=== PATIENT | female | born 1970 | race Caucasian/White ===

== ENCOUNTER 2025-01-25 22:10 | Inpatient (IN) ==
[2025-01-25] MEDS: ZOFRAN INJ 4 MG VIAL IVP ONE (22:33)
[2025-01-25] MEDS: NS 1,000 ML IV 1,000 ML IV ONE ×2 (22:34→23:25)
--- NOTE | 2025-01-25 22:40 | DR.FEVERAD ---
HPI Time seen Time Seen by Provider: 01/25/25 22:19 PCP Primary Care Physician: Miah Aragon Complaints/Symptoms Chief Complaint Doctor Comments: 54 yo F, hx of epilepsy, no other med hx, c/o n/v/d for past 2.5 days, ~5-8 episodes of vomiting per day, and ~10 episodes of diarrhea per day. Admits to fever/chills & dysuria. Admits to mild cough. Denies CP or dyspnea. Chief Complaint:: pt ambulatory in ed w/her states she has been running a fever,throwing up and having general malaise since thursday. pt was seen at her pcp today and tested positive for covid. COVID-19 Coronavirus risk:travel/contact w/high risk person: Yes Has patient experienced Coronavirus symptoms: Yes Coronavirus symptoms experienced: Fever, Coughing and Shortness of Breath Source History Provided: Patient Mode of Arrival Mode of Arrival: Ambulatory Timing Onset of Chief Complaint: 01/23/25 PMH PMH Past Medical History: Yes Past Medical History: Depression and Seizures Past Surgical History: Yes Past Surgical History Comment: breast Family History History of Family Medical Conditions: No Social History Type of Tobacco Use: Vape Travel Risk Coronavirus risk:travel/contact w/high risk person: Yes Has patient experienced Coronavirus symptoms: Yes Coronavirus symptoms experienced: Fever, Coughing and Shortness of Breath Infectious screening Have you traveled outside the country in the last 6 months?: No Isolation: Respiratory ROS Review of Systems Constitutional: Other (fever/chills, n/v/d, dysuria, cough) All Other Systems: Reviewed and Negative PE Vital Signs Vitals: Vital Signs Temperature 100.0 F Temperature 98.8 F Pulse Rate 86 Pulse Rate 89 Pulse Rate 91 Pulse Rate 97 Pulse Rate 102 Pulse Rate 96 Pulse Rate 103 Pulse Rate 103 Pulse Rate 106 Pulse Rate 106 Pulse Rate 120 Respiratory Rate 20 Respiratory Rate 20 Blood Pressure 86/51 Blood Pressure 93/51 Blood Pressure 104/71 Blood Pressure 104/71 Blood Pressure 104/71 Blood Pressure 113/73 Blood Pressure 113/73 Blood Pressure 98/59 O2 Sat by Pulse Oximetry 91 O2 Sat by Pulse Oximetry 94 O2 Sat by Pulse Oximetry 94 O2 Sat by Pulse Oximetry 94 O2 Sat by Pulse Oximetry 98 O2 Sat by Pulse Oximetry 99 O2 Sat by Pulse Oximetry 99 O2 Sat by Pulse Oximetry 99 O2 Sat by Pulse Oximetry 99 O2 Sat by Pulse Oximetry 97 O2 Sat by Pulse Oximetry 96 General Limitations: No Limitations General Appearance: Alert and In No Apparent Distress Head Head Exam: Normal Inspection Eyes Eye exam: Normal Appearance ENT ENT Exam: Normal Exam Neck Neck Exam: Normal Inspection Respiratory Respiratory Exam: Normal Lung Sounds Bilat Cardiovascular Cardiovascular Exam: Regular Rate and Normal Rhythm Abdominal Exam Abdominal Exam: Normal Inspection, Normal Bowel Sounds and Soft Extremities Extremities Exam: Normal Inspection Back Back Exam: Normal Inspection Neurologic Neurological Exam: Alert and Oriented X3 Psychiatric Psychiatric Exam: Normal Affect and Normal Mood Skin Skin Exam: Warm, Dry, Intact and Normal Color ROR Labs Reviewed Laboratory Results Reviewed?: Yes 01/25/25 22:30 01/25/25 22: Laboratory: WBC 20.2 X10^3/uL (3.6-10.0) H 01/25/25 22: RBC 4.79 X10^6/uL (3.5-5.4) 01/25/25 22: Hgb 14.5 g/dL (12.0-16.0) 01/25/25 22: Hct 43.0 % (36.0-47.0) 01/25/25 22: MCV 89.8 fL (80.0-100.0) 01/25/25 22: MCH 30.2 pg (27.0-34.0) 01/25/25 22: MCHC 33.6 g/dL (33.0-35.0) 01/25/25 22: RDW 13.3 % (11.6-16.5) 01/25/25: Plt Count 132 X10^3/uL (150.0-450.0) L 01/25/25 22: Plt Count Comment Decreased (ADEQUATE) A 01/25/25: MPV 9.1 fL (7.4-11.0) 01/25/25: Neut % (Auto) 77.4 % (42.0-75.0) H 01/25/25 22: Lymph % (Auto) 4.1 % (21.0-51.0) L 01/25/25: [place] % (Auto) 18.3 % (0.0-13.0) H 01/25/25 22:30 Eos % (Auto) 0.0 % (0.9-2.9) L 01/25/25 22:30 Baso % (Auto) 0.2 % (0.2-1.0) 01/25/25 22:30 Neut # (Auto) 15.6 x10^3/uL (2.2-4.8) H 01/25/25 22:30 Lymph # (Auto) 0.8 X10^3/uL (1.3-2.9) L 01/25/25 22:30 [place] # (Auto) 3.7 x10^3/uL (0.3-0.8) H 01/25/25 22:30 Eos # (Auto) 0.0 x10^3/uL (0.0-0.2) 01/25/25 22:30 Baso # (Auto) 0.0 X10^3/uL (0.0-0.1) 01/25/25 22:30 Absolute Nucleated RBC 0.0 /100WBC 01/25/25 22:30 Total Counted 100 01/25/25 22:30 Neutrophils % (Manual) 71 % (39-76) 01/25/25 22:30 Band Neutrophils % 5 % (0-10) 01/25/25 22:30 Lymphocytes % (Manual) 8 % (13-43) L 01/25/25 22:30 Monocytes % (Manual) 16 % (4-9) H 01/25/25 22:30 Plt Morphology Comment Normal (NORMAL) 01/25/25 22:30 RBC Morphology Abnormal (NORMAL) A 01/25/25 22:30 Anisocytosis 1+ A 01/25/25 22:30 Sodium 135 mmol/L (136-145) L 01/25/25 22:30 Corrected Sodium TNP 01/25/25 22:30 Potassium 3.9 mmol/L (3.5-5.1) 01/25/25 22:30 Chloride 98 mmol/L (98-107) 01/25/25 22:30 Carbon Dioxide 25.2 mmol/L (21-32) 01/25/25 22:30 BUN 25 mg/dL (7-18) H 01/25/25 22:30 Creatinine 1.55 mg/dL (0.55-1.02) H 01/25/25 22:30 Est GFR (MDRD) Af Amer 45 (>60) L 01/25/25 22:30 Est GFR (MDRD) Non-Af 37 (>60) L 01/25/25 22:30 Glucose 103 mg/dL (65-99) H 01/25/25 22:30 Lactic Acid 2.2 mmol/L (0.4-2.0) H 01/25/25 22:30 Calcium 10.0 mg/dL (8.5-10.1) 01/25/25 22: Corrected Calcium 10.8 mg/dL (8.5-10.1) H 01/25/25 22:30 Total Bilirubin 0.80 mg/dL (0.2-1.0) 01/25/25 22:30 AST 72 Units/L (15-37) H 01/25/25 22:30 ALT 56 Units/L (12-78) 01/25/25 22:30 Alkaline Phosphatase 61 Units/L (46-116) 01/25/25 22: Total Protein 7.9 g/dL (6.4-8.2) 01/25/25 22: Albumin 3.0 g/dL (3.4-5.0) L 01/25/25 22: Globulin 4.9 g/dL (2.5-4.5) H 01/25/25 22:30 Albumin/Globulin Ratio 0.6 Ratio (1.1-2.1) L 01/25/25 22:30 Lipase 19 Units/L (16-77) 01/25/25 22:30 Specimen Type Clean catch urine 01/25/25: Urine Color Dark yellow (YELLOW) 01/25/25: Urine Appearance Cloudy (CLEAR) 01/25/25: Urine pH 6.0 (5.0 - 8.0) 01/25/25: Ur Specific [place] 1.015 (1.000-1.030) 01/25/25: Urine Protein 3+ (NEGATIVE) 01/25/25: Urine Glucose (UA) Negative (NEGATIVE) 01/25/25: Urine Ketones Negative (NEGATIVE) 01/25/25: Urine Blood 5+ (NEGATIVE) 01/25/25 Urine Nitrite Negative (NEGATIVE) 08/20/25 23:33 Urine Bilirubin Negative (NEGATIVE) 01/25/25 23:33 Urine Urobilinogen 2+ (NORMAL) 01/25/25 23:33 Ur Leukocyte Esterase 3+ (NEGATIVE) 01/25/25 23:33 Urine RBC 10-20 /HPF (0-3) A 01/25/25 23:33 Urine WBC Tntc /HPF (0-5) A 01/25/25 23:33 Ur Squamous Epith Cells Rare /HPF (NEGATIVE) 01/25/25 23:33 Ur Transition Epith Cell Rare /HPF (NEGATIVE) 01/25/25 23:33 Amorphous Sediment 1+ /HPF (NEGATIVE) 01/25/25 23:33 Urine Bacteria Trace /HPF (NEGATIVE) 01/25/25 23:33 Urine Mucus Few /HPF (NEGATIVE) 01/25/25 23:33 Ur Culture Indicated? Yes/culture set up 01/25/25 23:33 Opioid Opioid Risk Tool Age (Messi box if 16-45): No History of Preadolescent Sexual Abuse: No Total: 0 Total Score Risk Category: Low Risk Copyright: Marco SOL predicting aberrant behaviors Discharge Plan Diagnosis Discharge Problem: Sepsis, UTI (urinary tract infection), COVID-19 Discharge Plan Patient Disposition: ADMITTED INPATIENT Condition: Stable Health Concerns: Post Hospitalization: new medications and changes needed to prevent readmission or further decline. Pt educated and given instructions on all concerns. Plan of Treatment: Continue with present treatment and follow up plan. Pt is to keep follow up appointment as instructed and take medications as ordered. Orders to Discharge Patient Discharge Orders: Transfer (Routine); Ordered 01/26/25 Ordered By: Oj Lomeli Follow ups/Referrals Follow ups/Referrals: MIAH ARAGON [Primary Care Provider, MEDICAL] - 3 days Instructions Stand Alone Forms: Find Help Web Site, Post Hospital Follow Up Care Print Language: CANADIAN ADDITIONAL NOTES Additional Notes Additional Notes: accepted for admission by Dr Ochoa.
[2025-01-25 22:53] LABS: COR CA(FOR HYPOALB) 10.8 mg/dL (8.5-10.1); CREATININE 1.55 mg/dL (0.55-1.02); eGFR NON BLACK RACES 37 (>60)
[2025-01-25 23:02] LABS: MEAN PLATELET VOLUME 9.1 fL (7.4-11.0)
[2025-01-25 23:05] LABS: RED CELL DISTRIBUTION WIDTH 13.3 % (11.6-16.5)
[2025-01-25] MEDS: TYLENOL 500 MG TAB EXTRA STRENGTH PO ONE (23:19)
[2025-01-25 23:48] LABS: BLOOD/HEMOGLOBIN,URINE 5+ (NEGATIVE); LEUKOCYTE ESTERASE ,URINE 3+ (NEGATIVE); NITRITES,URINE NEGATIVE (NEGATIVE)
[2025-01-25 23:53] LABS: BAND NEUTROPHILS % 5 % (0-10); PLATELET MORPHOLOGY COMMENT NORMAL (NORMAL)
[2025-01-25 23:54] LABS: APPEARANCE,URINE CLOUDY (CLEAR)
[2025-01-25 23:57] LABS: SQUAMOUS EPITHELIAL CELL,UR RARE /HPF (NEGATIVE)
[2025-01-26] MEDS: ROCEPHIN VIAL 1 GRAM 1 G in NS 100 ML IV 100 ML IV ONE (00:17)
[2025-01-26] MEDS: NS 1,000 ML IV 1,000 ML IV ONE (01:14)
[2025-01-26] MEDS: LEVOPHED 8 MG/250 ML IV *PREMIX 8 MG/250 ML PLAST..BAG IV PRN (01:42)
[2025-01-26] MEDS: PROAMATINE PO SCH (01:59)
[2025-01-26] MEDS ORDERED: MORPHINE SULFATE INJ 2 MG INJ IVP PRN (02:44)
[2025-01-26] MEDS ORDERED: NS 1,000 ML IV 1,000 ML IV SCH (02:44)
[2025-01-26] MEDS ORDERED: CONSULT PHARMACY - POTASSIUM & MAGNESIUM XX SCH (02:44)
[2025-01-26] MEDS: NS 1,000 ML IV 1,000 ML IV SCH (03:10)
[2025-01-26 05:13] LABS: MEAN PLATELET VOLUME 8.9 fL (7.4-11.0); RED CELL DISTRIBUTION WIDTH 13.1 % (11.6-16.5)
[2025-01-26 05:23] VITALS: BMI 22.0
[2025-01-26 05:47] LABS: COR CA(FOR HYPOALB) 9.8 mg/dL (8.5-10.1); COR NA(FOR HYPERGLY) 140.0 mmol/L (136-145); CREATININE 1.41 mg/dL (0.55-1.02); eGFR NON BLACK RACES 41.0 (>60)
--- NOTE | 2025-01-26 06:09 | RAD ---
EXAM: Portable chest HISTORY: Sepsis, COVID COMPARISON: None FINDINGS: Heart size is normal. Sarai are normal. Lungs are mildly hyperinflated but free of acute alveolar infiltrates. No pleural effusions or pneumothoraces identified. Bony thorax is unremarkable. IMPRESSION: Lungs are mildly hyperinflated but free of acute infiltrates THIS IS AN ELECTRONICALLY VERIFIED FINAL REPORT 01/26/2025 6:06 AM - Electronically signed by Hal Oliva MD
[2025-01-26] MEDS: TYLENOL 325 MG TAB PO PRN (08:03)
[2025-01-26] MEDS: K-DUR TAB 20 MEQ PO SCH (08:04)
[2025-01-26] MEDS: ZOFRAN INJ 4 MG VIAL ONE (08:07)
[2025-01-26] MEDS: NS 1,000 ML IV 1,000 ML ONE (08:07)
[2025-01-26] MEDS: TYLENOL 500 MG TAB EXTRA STRENGTH PO ONE (08:08)
[2025-01-26] MEDS: PULMICORT NEB TX 0.5 MG NEB SCH (08:43)
[2025-01-26] MEDS: DUONEB 0.5 MG/3 MG (3 mL) NEB SCH (08:43)
--- NOTE | 2025-01-26 10:45 | DR.H&P ---
H&P History & Physical for Day of: H&P Date: 01/26/25 Chief Complaint Chief Complaint: weakness, Dysuria Nausea, vomiting, diarrhea, Fever, chills History of Present Illness History of Present Illness: Patient is a 54-year-old female presenting with nausea, vomiting, diarrhea, generalized weakness, dysuria. She also reports having fevers and chills for the past few days. She went to her primary care doctor and was tested positive for COVID 19. Her symptoms progressively worsened and she came to the ER. In the ER she was noted to be hypotensive and weak. Labs/imaging: WBC 20.2,17.5, hemoglobin 12.3, platelets 122, sodium 140, potassium 3.5, creatinine 1.551.41, glucose 132, lactic acid 2.21.0, AST 207, ALT of 107, alk phos 59, chest x-ray no acute cardiopulmonary findings, urine/blood cultures pending. UA consistent with infection, AIT pending. Patient was admitted for sepsis and COVID-19 infection. She was started on Levophed drip. This morning she continues to be on the drip but her blood pressure has significantly responded. Will wean down as tolerated. Continue on IV fluids normal saline at 125 mL/h. She received Rocephin in the ER. Will change antibiotics to vancomycin and Zosyn. Order scheduled bronchodilators. Due to results we will also get a CT abdomen pelvis for further evaluation. Restart home medications. Otherwise continue with current treatment plan. Continue closely monitor and follow-up labs/imaging. Time spent for clinical assessment, reviewing labs/imaging, physical exam, decision making and documentation greater than 45 mins. Past Medical History Past Medical History: Depression and Seizures Past Surgical History Surgical History: Mastectomy Family History Family Medical History: Diabetes Mellitus and Coronary Artery Disease Social History Type of Tobacco Use: Vape Alcohol Use: Occasionally Drug Use: None Allergies Allergies Allergy/AdvReac Type Severity Reaction Status Date / Time codeine AdvReac Verified 01/25/25 22:23 Labs 01/26/25 04:08 01/26/25 04:08 Labs: Laboratory WBC 17.5 X10^3/uL (3.6-10.0) H 01/26/25 04:08 RBC 4.14 X10^6/uL (3.5-5.4) 01/26/25 04:08 Hgb 12.3 g/dL (12.0-16.0) D 01/26/25 04:08 Hct 37.5 % (36.0-47.0) 01/26/25 04:08 MCV 90.6 fL (80.0-100.0) 01/26/25 04:08 MCH 29.7 pg (27.0-34.0) 01/26/25 04:08 MCHC 32.8 g/dL (33.0-35.0) L 01/26/25 04:08 RDW 13.1 % (11.6-16.5) 01/26/25 04:08 Plt Count 122 X10^3/uL (150.0-450.0) L 01/26/25 04:08 Plt Count Comment Decreased (ADEQUATE) A 01/25/25 22:30 MPV 8.9 fL (7.4-11.0) 01/26/25 04:08 Neut % (Auto) 82.4 % (42.0-75.0) H 01/26/25 04:08 Lymph % (Auto) 6.1 % (21.0-51.0) L 01/26/25 04:08 [place] % (Auto) 11.2 % (0.0-13.0) 01/26/25 04:08 Eos % (Auto) 0.0 % (0.9-2.9) L 01/26/25 04:08 Baso % (Auto) 0.3 % (0.2-1.0) 01/26/25 04:08 Neut # (Auto) 14.5 x10^3/uL (2.2-4.8) H 01/26/25 04:08 Lymph # (Auto) 1.1 X10^3/uL (1.3-2.9) L 01/26/25 04:08 [place] # (Auto) 2.0 x10^3/uL (0.3-0.8) H 01/26/25 04:08 Eos # (Auto) 0.0 x10^3/uL (0.0-0.2) 01/26/25 04:08 Baso # (Auto) 0.1 X10^3/uL (0.0-0.1) 01/26/25 04:08 Absolute Nucleated RBC 0.1 /100WBC 01/26/25 04:08 Total Counted 100 01/25/25 22:30 Neutrophils % (Manual) 71 % (39-76) 01/25/25 22:30 Band Neutrophils % 5 % (0-10) 01/25/25 22:30 Lymphocytes % (Manual) 8 % (13-43) L 01/25/25 22:30 Monocytes % (Manual) 16 % (4-9) H 01/25/25 22:30 Plt Morphology Comment Normal (NORMAL) 01/25/25 22:30 RBC Morphology Abnormal (NORMAL) A 01/25/25 22:30 Anisocytosis 1+ A 01/25/25 22:30 Sodium 139 mmol/L (136-145) 01/26/25 04:08 Corrected Sodium 140 mmol/L (136-145) 01/26/25 04:08 Potassium 3.5 mmol/L (3.5-5.1) 01/26/25 04:08 Chloride 106 mmol/L (98-107) 01/26/25 04:08 Carbon Dioxide 23.0 mmol/L (21-32) 01/26/25 04:08 BUN 23 mg/dL (7-18) H 01/26/25 04:08 Creatinine 1.41 mg/dL (0.55-1.02) H 01/26/25 04:08 Est GFR (MDRD) Af Amer 50 (>60) L 01/26/25 04:08 Est GFR (MDRD) Non-Af 41 (>60) L 01/26/25 04:08 Glucose 132 mg/dL (65-99) H 01/26/25 04:08 Lactic Acid 1.0 mmol/L (0.4-2.0) 01/26/25 00:35 Calcium 8.4 mg/dL (8.5-10.1) L 01/26/25 04:08 Corrected Calcium 9.8 mg/dL (8.5-10.1) 01/26/25 04:08 Total Bilirubin 1.10 mg/dL (0.2-1.0) H 01/26/25 04:08 AST 207 Units/L (15-37) H 01/26/25 04:08 ALT 107 Units/L (12-78) H 01/26/25 04:08 Alkaline Phosphatase 59 Units/L (46-116) 01/26/25 04:08 Total Protein 6.2 g/dL (6.4-8.2) L 01/26/25 04:08 Albumin 2.2 g/dL (3.4-5.0) L 01/26/25 04:08 Globulin 4.0 g/dL (2.5-4.5) 01/26/25 04:08 Albumin/Globulin Ratio 0.6 Ratio (1.1-2.1) L 01/26/25 04:08 Lipase 19 Units/L (16-77) 01/25/25 22:30 Specimen Type Clean catch urine 01/25/25 23:33 Urine Color Dark yellow (YELLOW) 01/25/25 23: Urine Appearance Cloudy (CLEAR) 01/25/25 23: Urine pH 6.0 (5.0 - 8.0) 01/25/25 23:33 Ur Specific [place] 1.015 (1.000-1.030) 01/25/25 23:33 Urine Protein 3+ (NEGATIVE) 01/25/25 23: Urine Glucose (UA) Negative (NEGATIVE) 01/25/25 23: Urine Ketones Negative (NEGATIVE) 01/25/25 23: Urine Blood 5+ (NEGATIVE) 01/25/25: Urine Nitrite Negative (NEGATIVE) 01/25/25 23: Urine Bilirubin Negative (NEGATIVE) 01/25/25 23: Urine Urobilinogen 2+ (NORMAL) 01/25/25 23:33 Ur Leukocyte Esterase 3+ (NEGATIVE) 01/25/25 23: Urine RBC 10-20 /HPF (0-3) A 01/25/25 23:33 Urine WBC Tntc /HPF (0-5) A 01/25/25 23:33 Ur Squamous Epith Cells Rare /HPF (NEGATIVE) 01/25/25 23:33 Ur Transition Epith Cell Rare /HPF (NEGATIVE) 01/25/25 23: Amorphous Sediment 1+ /HPF (NEGATIVE) 01/25/25 23:33 Urine Bacteria Trace /HPF (NEGATIVE) 01/25/25 23:33 Urine Mucus Few /HPF (NEGATIVE) 01/25/25 23:33 Ur Culture Indicated? Yes/culture set up 01/25/25 23:33 Review of Systems Constitutional: Fever, Chills and Weakness Eyes: No Symptoms Reported ENT: No Symptoms Reported Respiratory: No Symptoms Reported Cardiovascular: No Symptoms Reported Gastrointestinal: Nausea and Vomiting Genitourinary: Dysuria Musculoskeletal: No Symptoms Reported Skin: No Symptoms Reported Neurological: No Symptoms Reported Physical Exam Vital Signs: Vital Signs Temperature 98.7 F Temperature 97.4 F Pulse Rate [Brachial] 75 Pulse Rate [Brachial] 85 Pulse Rate [Brachial] 71 Pulse Rate [Brachial] 69 Pulse Rate 80 Pulse Rate 79 Respiratory Rate 20 Respiratory Rate 20 Respiratory Rate 20 Respiratory Rate 20 Respiratory Rate 22 Respiratory Rate 21 Blood Pressure [Right Arm] 104/53 Blood Pressure [Right Arm] 115/58 Blood Pressure [Right Arm] 130/80 Blood Pressure [Right Arm] 99/54 O2 Sat by Pulse Oximetry 100 O2 Sat by Pulse Oximetry 100 O2 Sat by Pulse Oximetry 99 O2 Sat by Pulse Oximetry 99 O2 Sat by Pulse Oximetry 99 Oriented: Normal Eyes: Normal Ear: Normal Nose: Normal Throat: Normal Respiratory: Clear Throughout Cardiovascular: Normal : Normal Auscultation: Bowel Sounds: Normal Palpation: Normal Tenderness: Normal Skin: Decreased [place] Musculoskeletal: Normal Psychiatric: Normal Mood Description: Calm and Appropriate Affect: Normal Speech Pattern: Clear and Appropriate Assessment/Plan (1) Sepsis: Qualifiers: Sepsis type: sepsis due to unspecified organism Sepsis acute organ dysfunction status: unspecified Qualified Code(s): A41.9 - Sepsis, unspecified organism Status: Acute Plan: Continue ICU monitoring Continue IV fluids and wean Levophed drip. Continue IV antibiotics vancomycin and Zosyn. (2) UTI (urinary tract infection): Qualifiers: Urinary tract infection type: acute cystitis Hematuria presence: with hematuria Qualified Code(s): N30.01 - Acute cystitis with hematuria Status: Acute Plan: Order CT abdomen and pelvis. Follow-up cultures. (3) COVID-19: Status: Acute (4) Elevated liver enzymes: Status: Acute Plan: Will order CT abdomen pelvis for further evaluation. Review H&P Reviewed: Yes Patient was examined?: Yes
[2025-01-26] MEDS: NS 250 ML IV 250 ML IV ONE (11:01)
[2025-01-26] MEDS: VANCOMYCIN IV *PREMIX 1.25 G/250 ML BAG 1.25 G/250 ML PIGGYBACK IV SCH (11:01)
[2025-01-26] MEDS: ZOFRAN TAB 4 MG PO PRN (12:00)
[2025-01-26] MEDS: ZOSYN VIAL 3.375 GRAMS 3.375 G in NS 100 ML IV 100 ML IV SCH (12:10)
--- NOTE | 2025-01-26 13:41 | CT ---
EXAM: ABDOMEN/PELVIS W/O CON HISTORY: ABDOMINAL PAIN ELEVATED LIVER ENZYMES; COMPARISON: CT abdomen and pelvis 10/12/2024 TECHNIQUE: Multiple CT axial images of the abdomen and pelvis were obtained without IV contrast. Coronal and sagittal images were reconstructed. Dose reduction techniques included Automated Exposure Control (AEC) and adjustment of mA and kV. FINDINGS: Small nodular areas right lower lobe are unchanged. No acute pneumonia in the lung bases or pleural effusion. Heart size normal. Right breast prosthesis is present. The liver is normal in size and configuration. The gallbladder has no edema around it. No calcified gallstones. The spleen is normal in size and shape. The adrenal glands are normal. The pancreas is normal. Small stone lower pole right kidney measures 3 mm. No abnormal calcification in the left kidney, the ureters, or the urinary bladder. The kidneys have normal size and shape. There is no hydronephrosis or significant perirenal edema. The bladder has normal distention. It has no wall thickening or perivesical edema. The bowel is not dilated. There is no wall thickening in the bowel or edema around the bowel. The appendix is normal in size with no inflammation around it. No evidence of appendicitis. There is no significant bone abnormality. IMPRESSION: 1. Nonobstructing right renal calculus 2. Stable right lower lobe lung nodules THIS IS AN ELECTRONICALLY VERIFIED FINAL REPORT 01/26/2025 1:38 PM - Electronically signed by Audie Simental MD
[2025-01-26] MEDS: ULTRAM PO PRN (14:16)
[2025-01-26] MEDS ORDERED: ROCEPHIN VIAL 1 GRAM 1 G in NS 100 ML IV 100 ML IV SCH (20:00)
[2025-01-26] MEDS: PROTONIX TAB 40 MG PO SCH (22:39)
[2025-01-26] MEDS: REQUIP PO SCH (22:39)
[2025-01-26] MEDS: DEPAKOTE D.R. TAB PO SCH (22:39)
[2025-01-26] MEDS: ZOCOR TAB 40 MG PO SCH (22:40)
[2025-01-26] MEDS: INDOCIN CAP 25 MG PO SCH (22:51)
[2025-01-27] MEDS: RESTORIL CAP 15 MG PO PRN (00:50)
[2025-01-27 05:29] LABS: MEAN PLATELET VOLUME 8.6 fL (7.4-11.0); RED CELL DISTRIBUTION WIDTH 13.4 % (11.6-16.5)
[2025-01-27 05:49] LABS: COR CA(FOR HYPOALB) 9.9 mg/dL (8.5-10.1); COR NA(FOR HYPERGLY) 139 mmol/L (136-145); CREATININE 1.12 mg/dL (0.55-1.02); eGFR NON BLACK RACES 54 (>60)
[2025-01-27] MEDS: DEPAKOTE D.R. TAB PO ONE (06:56)
[2025-01-27] MEDS ORDERED: CONSULT PHARMACY - POTASSIUM & MAGNESIUM XX SCH (07:00)
[2025-01-27] MEDS: MAG-OX TAB PO SCH (08:26)
[2025-01-27] MEDS: K-DUR TAB 20 MEQ PO SCH (08:26)
[2025-01-27] MEDS: ZOLOFT PO SCH (08:26)
[2025-01-27] MEDS: TRICOR TAB 48 MG PO SCH (08:26)
[2025-01-27] MEDS: COLACE CAP 100 MG PO PRN (10:25)
[2025-01-27] MEDS: ZOFRAN INJ 4 MG VIAL IVP PRN (15:27)
--- NOTE | 2025-01-27 17:10 | PCM.PROG ---
Progress Note Progress Note for Day of Date of Exam: 01/27/25 Subjective Subjective: Patient is a 54-year-old female admitted for sepsis and COVID-19 infection. Patient reports she tested positive for COVID-19 at her primary care office. This morning she is resting comfortably in bed. No acute events overnight. She was able to be weaned off the Levophed drip. Her blood pressure has remained stable. Labs/imaging: WBC 8.8, hemoglobin 9.4, platelets 88, sodium 139, potassium 3.2, creatinine 1.12, glucose 114, AST 561, ALT 352, ALK P 80, CT abdomen and pelvis was obtained that revealed Non-obstructing right renal calculus. Stable right lower lobe lung nodules. Urine culture positive for E coli, Blood cultures pending. AIT pending. Continue on IV fluids normal saline at 125 mL/h. She is currently on antibiotics IV Vancomycin and Zosyn. Will de- escalate and discontinue Vancomycin. Continue scheduled bronchodilators. Order hepatitis panel, discontinue Tricor and Tylenol. Monitor liver enzymes. Home medications have been resumed. Otherwise continue with current treatment plan. Continue closely monitor and follow-up labs/imaging. Time spent for clinical assessment, reviewing labs/imaging, physical exam, decision making and documentation greater than 45 mins. Past Medical Family Social History Allergies: Allergies codeine Adverse Reaction (Verified 01/25/25 22:23) Review of Systems ROS changes noted: see HPI Vital Signs and I&O's Vital Signs: Vital Signs Temperature 97.7 F Temperature 97.6 F Pulse Rate [Brachial] 93 Pulse Rate [Brachial] 82 Pulse Rate [Brachial] 79 Pulse Rate [Brachial] 79 Pulse Rate [Brachial] 79 Pulse Rate [Brachial] 95 Pulse Rate 76 Respiratory Rate 20 Respiratory Rate 25 Respiratory Rate 19 Respiratory Rate 21 Respiratory Rate 18 Respiratory Rate 16 Blood Pressure [Right Arm] 121/65 Blood Pressure [Right Arm] 115/55 Blood Pressure [Right Arm] 100/55 Blood Pressure [Right Arm] 97/55 Blood Pressure [Right Arm] 111/53 Blood Pressure [Right Arm] 100/54 O2 Sat by Pulse Oximetry 100 O2 Sat by Pulse Oximetry 100 O2 Sat by Pulse Oximetry 96 O2 Sat by Pulse Oximetry 96 O2 Sat by Pulse Oximetry 97 O2 Sat by Pulse Oximetry 99 O2 Sat by Pulse Oximetry 100 Intake and Output: Intake & Output 08/01/25/25 01/26/25 01/27/25 23:59 23:59 23:59 23:59 Intake Total 4447.0 / 4447.0 330 / 3308 Output Total 0 / 0 Balance 4447.0 / 4447.0 330 / 3308 Physical Exam Oriented: Normal Eyes: Normal Ear: Normal Nose: Normal Throat: Normal Respiratory: Normal Cardiovascular: Normal : Normal Auscultation: Bowel Sounds: Normal Tenderness: Normal Skin: Decreased Turgur Musculoskeletal: Normal Psychiatric: Normal Mood Description: Calm and Appropriate Affect: Normal Speech Pattern: Clear and Appropriate Laboratory and Diagnostics 01/27/25 04:38 01/27/25 04:38 Labs: 01/25/25 22:30 Blood Blood Culture - Preliminary 01/25/25 22:42 Blood Blood Culture - Preliminary 01/25/25 23:33 Urine,Clean Catch Urine Culture - Final Escherichia Coli Laboratory WBC 8.8 X10^3/uL (3.6-10.0) D 01/27/25 04:38 RBC 3.06 X10^6/uL (3.5-5.4) L 01/27/25 04:38 Hgb 9.4 g/dL (12.0-16.0) L D 01/27/25 04:38 Hct 27.2 % (36.0-47.0) L 01/27/25 04:38 MCV 88.7 fL (80.0-100.0) 01/27/25 04:38 MCH 30.7 pg (27.0-34.0) 01/27/25 04:38 MCHC 34.6 g/dL (33.0-35.0) 01/27/25 04:38 RDW 13.4 % (11.6-16.5) 01/27/25 04:38 Plt Count 88 X10^3/uL (150.0-450.0) L 01/27/25 04:38 Plt Count Comment Decreased (ADEQUATE) A 01/25/25 22:30 MPV 8.6 fL (7.4-11.0) 01/27/25 04:38 Neut % (Auto) 72.8 % (42.0-75.0) 01/27/25 04:38 Lymph % (Auto) 12.0 % (21.0-51.0) L 01/27/25 04:38 Lake % (Auto) 13.9 % (0.0-13.0) H 01/27/25 04:38 Eos % (Auto) 0.9 % (0.9-2.9) 01/27/25 04:38 Baso % (Auto) 0.4 % (0.2-1.0) 01/27/25 04:38 Neut # (Auto) 6.4 x10^3/uL (2.2-4.8) H 01/27/25 04:38 Lymph # (Auto) 1.1 X10^3/uL (1.3-2.9) L 01/27/25 04:38 Lake # (Auto) 1.2 x10^3/uL (0.3-0.8) H 01/27/25 04:38 Eos # (Auto) 0.1 x10^3/uL (0.0-0.2) 01/27/25 04:38 Baso # (Auto) 0.0 X10^3/uL (0.0-0.1) 01/27/25 04:38 Absolute Nucleated RBC 0.1 /100WBC 01/27/25 04:38 Total Counted 100 01/25/25 22:30 Neutrophils % (Manual) 71 % (39-76) 01/25/25 22:30 Band Neutrophils % 5 % (0-10) 01/25/25 22:30 Lymphocytes % (Manual) 8 % (13-43) L 01/25/25 22:30 Monocytes % (Manual) 16 % (4-9) H 01/25/25 22:30 Plt Morphology Comment Normal (NORMAL) 01/25/25 22:30 RBC Morphology Abnormal (NORMAL) A 01/25/25 22:30 Anisocytosis 1+ A 01/25/25 22:30 Sodium 139 mmol/L (136-145) 01/27/25 04:38 Corrected Sodium 139 mmol/L (136-145) 01/27/25 04:38 Potassium 3.2 mmol/L (3.5-5.1) L 01/27/25 04:38 Chloride 108 mmol/L (98-107) H 01/27/25 04:38 Carbon Dioxide 20.4 mmol/L (21-32) L 01/27/25 04:38 BUN 7 mg/dL (7-18) 01/27/25 04:38 Creatinine 1.12 mg/dL (0.55-1.02) H 01/27/25 04:38 Est GFR (MDRD) Af Amer > 60 (>60) 01/27/25 04:38 Est GFR (MDRD) Non-Af 54 (>60) L 01/27/25 04:38 Glucose 114 mg/dL (65-99) H 01/27/25 04:38 Lactic Acid 1.0 mmol/L (0.4-2.0) 01/26/25 00:35 Calcium 8.0 mg/dL (8.5-10.1) L 01/27/25 04:38 Corrected Calcium 9.9 mg/dL (8.5-10.1) 01/27/25 04:38 Magnesium 1.6 mg/dL (2.0-2.9) L 01/27/25 04:38 Total Bilirubin 0.80 mg/dL (0.2-1.0) 01/27/25 04:38 AST 561 Units/L (15-37) H 01/27/25 04:38 ALT 352 Units/L (12-78) H 01/27/25 04:38 Alkaline Phosphatase 80 Units/L (46-116) 01/27/25 04:38 Total Protein 4.7 g/dL (6.4-8.2) L 01/27/25 04:38 Albumin 1.6 g/dL (3.4-5.0) L 01/27/25 04:38 Globulin 3.1 g/dL (2.5-4.5) 01/27/25 04:38 Albumin/Globulin Ratio 0.5 Ratio (1.1-2.1) L 01/27/25 04:38 Lipase 19 Units/L (16-77) 01/25/25 22:30 Specimen Type Clean catch urine 01/25/25 23:33 Urine Color Dark yellow (YELLOW) 01/25/25 23:33 Urine Appearance Cloudy (CLEAR) 01/25/25 23:33 Urine pH 6.0 (5.0 - 8.0) 01/25/25 23:33 Ur Specific Twilight 1.015 (1.000-1.030) 01/25/25 23:33 Urine Protein 3+ (NEGATIVE) 01/25/25 23:33 Urine Glucose (UA) Negative (NEGATIVE) 01/25/25 23:33 Urine Ketones Negative (NEGATIVE) 01/25/25 23:33 Urine Blood 5+ (NEGATIVE) 01/25/25 23:33 Urine Nitrite Negative (NEGATIVE) 01/25/25 23:33 Urine Bilirubin Negative (NEGATIVE) 01/25/25 23:33 Urine Urobilinogen 2+ (NORMAL) 01/25/25 23:33 Ur Leukocyte Esterase 3+ (NEGATIVE) 01/25/25 23:33 Urine RBC 10-20 /HPF (0-3) A 01/25/25 23:33 Urine WBC Tntc /HPF (0-5) A 01/25/25 23:33 Ur Squamous Epith Cells Rare /HPF (NEGATIVE) 01/25/25 23:33 Ur Transition Epith Cell Rare /HPF (NEGATIVE) 01/25/25 23:33 Amorphous Sediment 1+ /HPF (NEGATIVE) 01/25/25 23:33 Urine Bacteria Trace /HPF (NEGATIVE) 01/25/25 23:33 Urine Mucus Few /HPF (NEGATIVE) 01/25/25 23:33 Ur Culture Indicated? Yes/culture set up 01/25/25 23:33 Plan (1) Sepsis: Status: Acute Qualifiers: Sepsis acute organ dysfunction status: unspecified Sepsis type: sepsis due to unspecified organism Qualified Code(s): A41.9 - Sepsis, unspecified organism Plan: Continue ICU monitoring Continue IV fluids. Off Levophed drip. Continue IV antibiotics Zosyn. (2) UTI (urinary tract infection): Status: Acute Qualifiers: Hematuria presence: with hematuria Urinary tract infection type: acute cystitis Qualified Code(s): N30.01 - Acute cystitis with hematuria Plan: Follow-up cultures. (3) COVID-19: Status: Acute (4) Elevated liver enzymes: Status: Acute Plan: order hepatitis panel, hold medications
[2025-01-27] MEDS: NORCO 5/325 MG TAB PO PRN (20:55)
[2025-01-27] MEDS: DUONEB 0.5 MG/3 MG (3 mL) NEB SCH (21:21)
[2025-01-27] MEDS: VISTARIL PO PRN (22:12)
[2025-01-28 05:39] LABS: MEAN PLATELET VOLUME 9.0 fL (7.4-11.0); RED CELL DISTRIBUTION WIDTH 13.4 % (11.6-16.5)
[2025-01-28 05:59] LABS: COR CA(FOR HYPOALB) 10.0 mg/dL (8.5-10.1); CREATININE 0.76 mg/dL (0.55-1.02); eGFR NON BLACK RACES > 60 (>60)
[2025-01-28] MEDS ORDERED: CONSULT PHARMACY - POTASSIUM & MAGNESIUM XX SCH (07:00)
[2025-01-28] MEDS: DEPAKOTE D.R. TAB PO ONE (07:21)
[2025-01-28] MEDS: ZOSYN VIAL 3.375 GRAMS IV ONE (07:22)
--- NOTE | 2025-01-28 12:26 | US ---
EXAM: GALL BLADDER HISTORY: Elevated LFTs, Nausea Vomiting, Abdominal Pain; COMPARISON: None. TECHNIQUE: Multiple watkins scale and color flow Doppler images of the right upper quadrant were obtained. FINDINGS: The liver is normal in echotexture and size . No focal intraparenchymal mass or intrahepatic biliary ductal dilatation can be observed. The gallbladder fails to demonstrate evidence for cholelithiasis or layering sludge . The common bile duct is unremarkable measuring 3 mm in width. No pericholecystic fluid or gallbladder wall thickening can be observed . The right kidney appears normal in size without focal parenchymal mass or nephrolithiasis. The right kidney measurers 11.3 cm in length. No hydronephrosis or perirenal fluid can be observed. The pancreas is obscured by overlying bowel gas. IMPRESSION: Unremarkable examination of the right upper quadrant. THIS IS AN ELECTRONICALLY VERIFIED FINAL REPORT 01/28/2025 12:22 PM - Electronically signed by Jaspal Barba MD
[2025-01-28] MEDS: K-DUR TAB 20 MEQ PO SCH (14:11)
[2025-01-28] MEDS: MAG-OX TAB PO SCH (14:11)
[2025-01-28] MEDS: NS + KCL 40 MEQ/L 1,000 ML IV SCH (15:44)
[2025-01-28] MEDS: MAGNESIUM SULFATE 1 GRAM/100 mL PREMIX 1 G/100 ML BAG IV SCH (15:45)
[2025-01-29] MEDS: DEPAKOTE D.R. TAB PO ONE (00:55)
[2025-01-29 03:57] VITALS: BP 123/60
[2025-01-29 05:26] LABS: MEAN PLATELET VOLUME 8.1 fL (7.4-11.0); RED CELL DISTRIBUTION WIDTH 13.5 % (11.6-16.5)
[2025-01-29 05:36] LABS: COR CA(FOR HYPOALB) 9.9 mg/dL (8.5-10.1); CREATININE 0.96 mg/dL (0.55-1.02); eGFR NON BLACK RACES > 60 (>60)
[2025-01-29] MEDS ORDERED: CONSULT PHARMACY - POTASSIUM & MAGNESIUM XX SCH (07:00)
[2025-01-29 08:18] VITALS: RESP 19; TEMP 97.8; O2SAT 99
[2025-01-29] MEDS ORDERED: PHARMACY COMMENT IV ONE (08:30)
[2025-01-29] MEDS: K-DUR TAB 20 MEQ PO SCH (09:00)
[2025-01-29 09:22] VITALS: PULSE 95
[2025-01-29] MEDS ORDERED: MILK OF MAGNESIA PO PRN (11:16)
== END 2025-01-29 11:45 | disposition home or self-care (01) | DRG 871 ==
LOC: ICU 22:10 → MED/SURG 22:10 → ER 22:10 → OBSVTOIN 01-26 00:44 → ICU 01-26 02:11 → MED/SURG 01-28 16:52
PROVIDERS: ADMIT Family Medicine; ATTEND Family Medicine